=== PATIENT | male | born 2005 | race Caucasian/White ===

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

== ENCOUNTER → 2024-02-20 | Outpatient (CLI) | payer OTHER ==
--- NOTE | 2024-02-20 21:24 | MR ---
EXAMINATION TYPE: MR lumbar spine wo con DATE OF EXAM: 02/20/2024 COMPARISON: None HISTORY: Low back pain near tail bone and down right leg CONTRAST: 0 mL intravenous Gadavist. TECHNIQUE: Multiplanar, multisequence images of the lumbar spine were acquired. FINDINGS: L5-S1: No significant disc bulge or disc herniation. No spinal canal stenosis. No foraminal stenosi s. L4-L5: Disc desiccation is present. Disc height is preserved. There is mild to moderate disc bulging with mild anterior thecal sac compression. No AP spinal canal stenosis present. Neural foramen are pa tent L3-L4: No significant disc bulge or disc herniation. No spinal canal stenosis. No foraminal stenosi s. L2-L3: No significant disc bulge or disc herniation. No spinal canal stenosis. No foraminal stenosi s. L1-L2: No significant disc bulge or disc herniation. No spinal canal stenosis. No foraminal stenosi s. T12-L1: No significant disc bulge or disc herniation. No spinal canal stenosis. No foraminal stenos is. IMPRESSION: 1. Mild degenerative disc change with mild disc bulge L4-5.
== END | disposition home or self-care (01) ==
LOC: RADMRIMAIN 13:56
PROVIDERS: ATTEND Orthopaedic Surgery
DX: M51.36 Other intervertebral disc degeneration, lumbar region (principal)
CPT/HCPCS: 72148

== ENCOUNTER 2024-03-31 11:21 | Emergency (ER) | payer OTHER ==
[2024-03-31 11:42] VITALS: TEMP 98.3
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
[2024-03-31] MEDS: DIPH,PERTUS(ACELL)TETVAC-LF 0.5 ML VIAL IM ONE (12:49)
--- NOTE | 2024-03-31 13:23 | XR ---
EXAMINATION TYPE: XR wrist complete LT DATE OF EXAM: 03/31/2024 COMPARISON: NONE HISTORY: 18-year-old male left wrist injury and pain TECHNIQUE: 4 views FINDINGS: The radiocarpal and distal radial ulnar joint as well as the midcarpal compartment appear i ntact. However, the navicular view, there is subtle lucency along the carpal side of the navicular mi d pole. No other acute fracture or dislocation seen. IMPRESSION: Findings highly suggestive of a nondisplaced mid scaphoid waist fracture.
[2024-03-31 14:14] VITALS: BP 134/84; PULSE 72; RESP 18
== END 2024-03-31 14:14 | disposition home or self-care (01) ==
LOC: EC 11:21
CPT/HCPCS: 29125; 90471; 90715; 99283

== ENCOUNTER 2024-04-01 08:40 | Emergency (ER) | payer OTHER ==
[2024-04-01 08:44] VITALS: TEMP 98.1
--- NOTE | 2024-04-01 08:52 | ED ---
General Adult HPI - General Chief complaint: Recheck/Abnormal Lab/Rx Stated complaint: Thumb Fracture Time Seen by Provider: 04/01/24 08:43 Source: patient, RN notes reviewed Mode of arrival: ambulatory Limitations: no limitations - History of Present Illness Initial comments: 18-year-old male presents emergency department chief complaint of needing a work note. Patient was seen his other day for left scaphoid fracture. He states he did not receive a work note has no new complaints he has not taken the splint off has a follow-up with orthopedics on Monday. - Related Data Home Medications Medication Instructions Recorded Confirmed Dextroamphetamine/Amphetamine 30 mg PO QAM 12/22/16 12/22/16 [Adderall Xr] Dextroamphetamine/Amphetamine 10 mg PO W/LUNCH 12/22/16 12/22/16 [Adderall] guanFACINE HCL [Intuniv] 2 mg PO DAILY 12/22/16 12/22/16 Previous Rx's Medication Instructions Recorded Ibuprofen [Motrin] 800 mg PO Q6HR #30 tab 04/07/23 Cephalexin [Keflex] 500 mg PO Q12HR 7 Days #10 cap 03/31/24 Allergies Allergy/AdvReac Type Severity Reaction Status Date / Time No Known Allergies Allergy Verified 03/31/24 11:41 Review of Systems ROS Statement: Those systems with pertinent positive or pertinent negative responses have been documented in the HPI. ROS Other: All systems not noted in ROS Statement are negative. Past Medical History Past Medical History: No Reported History Additional Past Medical History / Comment(s): defiant History of Any Multi-Drug Resistant Organisms: None Reported Past Surgical History: No Surgical Hx Reported Past Psychological History: ADD/ADHD Smoking Status: Never smoker Past Alcohol Use History: None Reported Past Drug Use History: None Reported General Exam Limitations: no limitations General appearance: alert, in no apparent distress Respiratory exam: Present: normal lung sounds bilaterally. Absent: respiratory distress, wheezes, rales, rhonchi, stridor Cardiovascular Exam: Present: regular rate, normal rhythm, normal heart sounds. Absent: systolic murmur, diastolic murmur, rubs, gallop, clicks Extremities exam: Present: other (Splint left wrist) Course Vital Signs 04/01/24 08:41 Temperature 98.1 F Pulse Rate 71 Respiratory 20 Rate Blood Pressure 132/78 O2 Sat by Pulse 98 Oximetry Medical Decision Making - Medical Decision Making Was pt. sent in by a medical professional or institution (EMEKA Gerber, RESPIRATORY SUPERVISOR, urgent care, hospital, or [facility]...) When possible be specific @ -No Did you speak to anyone other than the patient for history (EMS, parent, family, police, friend...)? What history was obtained from this source @ -No Did you review nursing and triage notes (agree or disagree)? Why? @ -I reviewed and agree with nursing and triage notes Were old charts reviewed (outside hosp., previous admission, EMS record, old EKG, old radiological studies, urgent care reports/EKG's, [facility] records)? Report findings @ -No old charts were reviewed Differential Diagnosis (chest pain, altered mental status, abdominal pain women, abdominal pain men, vaginal bleeding, weakness, fever, dyspnea, syncope, headache, dizziness, GI bleed, back pain, seizure, CVA, palpatations, mental health, musculoskeletal)? @ -Work note, scaphoid fracture EKG interpreted by me (3pts min.). @ -None X-rays interpreted by me (1pt min.). @ -None done CT interpreted by me (1pt min.). @ -None done U/S interpreted by me (1pt. min.). @ -None done What testing was considered but not performed or refused? (CT, X-rays, U/S, labs)? Why? @ -None What meds were considered but not given or refused? Why? @ -None Did you discuss the management of the patient with other professionals (professionals i.e. , EMEKA, RESPIRATORY SUPERVISOR, lab, RT, psych nurse, case management social worker, customs officer, teacher, cra officer, watch caser)? Give summary @ -No Was smoking cessation discussed for >3mins.? @ -No Was critical care preformed (if so, how long)? @ -No Were there social determinants of health that impacted care today? How? (Homelessness, low income, unemployed, alcoholism, drug addiction, transportation, low edu. Level, literacy, decrease access to med. care, custodial, re hab)? @ -No Was there de-escalation of care discussed even if they declined (Discuss DNR or withdrawal of care, Hospice)? DNR status @ -No What co-morbidities impacted this encounter? (DM, HTN, Smoking, COPD, CAD, Cancer, CVA, ARF, Chemo, Hep., AIDS, mental health diagnosis, sleep apnea, morbid obesity)? @ -None Was patient admitted / discharged? Hospital course, mention meds given and route, prescriptions, significant lab abnormalities, going to OR and other pertinent info. @ -Discharge patient presented with work note follow-up with orthopedics. Undiagnosed new problem with uncertain prognosis? @ -No Drug Therapy requiring intensive monitoring for toxicity (Heparin, Nitro, Insulin, Cardizem)? @ -No Were any procedures done? @ -No Diagnosis/symptom? @ -Work note, scaphoid fracture Acute, or Chronic, or Acute on Chronic? @ -acute Uncomplicated (without systemic symptoms) or Complicated (systemic symptoms)? @ -uncomplicated Side effects of treatment? @ -No Exacerbation, Progression, or Severe Exacerbation? @ -No Poses a threat to life or bodily function? How? (Chest pain, [place], [place], pneumonia, PE, COPD, DKA, ARF, appy, cholecystitis, CVA, Diverticulitis, Homicidal, Suicidal, threat to staff... and all critical care pts) @ -No Disposition Clinical Impression: Scaphoid fracture Disposition: HOME SELF-CARE Condition: Stable Is patient prescribed a controlled substance at d/c from ED?: No Referrals: Nabil Estrella MD [Primary Care Provider] - 1-2 days Time of Disposition: 08:52
[2024-04-01 09:16] VITALS: BP 128/78; PULSE 72; RESP 18
== END 2024-04-01 09:14 | disposition home or self-care (01) ==
LOC: EC 08:40
DX: S62.002A Unspecified fracture of navicular [scaphoid] bone of left wrist, initial encounter for closed fracture (principal); X58.XXXA Exposure to other specified factors, initial encounter
CPT/HCPCS: 99283

== ENCOUNTER 2024-12-06 15:02 | Emergency (ER) | payer OTHER ==
--- NOTE | 2024-12-06 16:25 | ED ---
Abdominal Pain HPI - General Chief Complaint: Abdominal Pain Stated Complaint: abd bloating/pain Time Seen by Provider: 12/06/24 16:03 Source: patient, RN notes reviewed, old records reviewed Mode of arrival: ambulatory Limitations: no limitations - History of Present Illness Initial Comments: This is a 19-year-old male to the ER for evaluation abdominal pain, patient has mild abdominal pain here in the ER crampy abdominal pain periumbilical abdominal pain. At this point patient has some nausea no vomiting decreased bowel movements for what he believes is a week. This no abdominal surgeries he did take 2 stool softeners in the last 2 days with no travel history or sick contacts. Patient has occasional cramping which does appear to be worse after taking medication. No surgical no medical history no drugs or alcohol MD Complaint: abdominal pain, other (Nausea vomiting) -: days(s) Location: epigastric, suprapubic Radiation: epigastric, suprapubic Migration to: periumbilical Severity: moderate Severity scale (1-10): 4 Quality: cramping, aching Consistency: intermittent Improves With: nothing Worsens With: nothing Associated Symptoms: nausea Treatments Prior to Arrival: other (Patient to take [id number] stool softeners) - Related Data Home Medications Medication Instructions Recorded Confirmed Dextroamphetamine/Amphetamine 30 mg PO QAM 12/22/16 12/22/16 [Adderall Xr] Dextroamphetamine/Amphetamine 10 mg PO W/LUNCH 12/22/16 12/22/16 [Adderall] guanFACINE HCL [Intuniv] 2 mg PO DAILY 12/22/16 12/22/16 Previous Rx's Medication Instructions Recorded Ibuprofen [Motrin] 800 mg PO Q6HR #30 tab 04/07/23 Cephalexin [Keflex] 500 mg PO Q12HR 7 Days #10 cap 03/31/24 polyethylene glycoL 3350 [Miralax] 17 gm PO BID #527 gm 12/06/24 Allergies Allergy/AdvReac Type Severity Reaction Status Date / Time No Known Allergies Allergy Verified 03/31/24 11:41 Review of Systems ROS Statement: Those systems with pertinent positive or pertinent negative responses have been documented in the HPI. ROS Other: All systems not noted in ROS Statement are negative. Past Medical History Past Medical History: No Reported History Additional Past Medical History / Comment(s): defiant History of Any Multi-Drug Resistant Organisms: None Reported Past Surgical History: No Surgical Hx Reported Past Psychological History: ADD/ADHD Smoking Status: Never smoker Past Alcohol Use History: None Reported Past Drug Use History: None Reported General Exam Limitations: no limitations General appearance: alert, in no apparent distress Head exam: Present: atraumatic, normocephalic, normal inspection Eye exam: Present: normal appearance, PERRL, EOMI. Absent: scleral icterus, conjunctival injection, periorbital swelling ENT exam: Present: normal exam, mucous membranes moist Neck exam: Present: normal inspection. Absent: tenderness, meningismus, lymphadenopathy Respiratory exam: Present: normal lung sounds bilaterally. Absent: respiratory distress, wheezes, rales, rhonchi, stridor Cardiovascular Exam: Present: regular rate, normal rhythm, normal heart sounds. Absent: systolic murmur, diastolic murmur, rubs, gallop, clicks GI/Abdominal exam: Present: soft, normal bowel sounds. Absent: distended, tenderness, guarding, rebound, rigid Extremities exam: Present: normal inspection, full ROM, normal capillary refill. Absent: tenderness, pedal edema, joint swelling, calf tenderness Back exam: Present: normal inspection Neurological exam: Present: alert, oriented X3, CN II-XII intact Psychiatric exam: Present: normal affect, normal mood Skin exam: Present: warm, dry, intact, normal color. Absent: rash Course Vital Signs 12/06/24 15:09 Temperature 98.0 F Pulse Rate 81 Respiratory 18 Rate Blood Pressure 113/71 O2 Sat by Pulse 97 Oximetry - Reevaluation(s) Reevaluation #1: 12/06/24 16:25 Medical records reviewed Reevaluation #4: Was pt. sent in by a medical professional or institution (, PA, SPANISH LECTURER, urgent care, hospital, or snf...) When possible be specific @ -no Did you speak to anyone other than the patient for history (EMS, parent, family, police, friend...)? What history was obtained from this source @ -no Did you review nursing and triage notes (agree or disagree)? Why? @ -agree Are old charts reviewed (outside hosp., previous admission, EMS record, old EKG, old radiological studies, urgent care reports/EKG's, snf records)? Report findings @ -yes Differential Diagnosis (chest pain, altered mental status, abdominal pain women, abdominal pain men, vaginal bleeding, weakness, fever, dyspnea, syncope, headache, dizziness, GI bleed, back pain, seizure, CVA, palpatations, mental health, musculoskeletal)? @ -prior EKG interpreted by me (3pts min.). @ -yes X-rays interpreted by me (1pt min.). @ -yes negative for acute disease CT interpreted by me (1pt min.). @ -no U/S interpreted by me (1pt. min.). @ -no What testing was considered but not performed or refused? (CT, X-rays, U/S, labs)? Why? @ -none What meds were considered but not given or refused? Why? @ -none Did you discuss the management of the patient with other professionals (professionals i.e. , PA, SPANISH LECTURER, lab, RT, psych nurse, social media sr strategy manager, academic specialist, teacher, emergency response officer, registered nurse hh case manager)? Give summary @ -no Was smoking cessation discussed for >3mins.? @ -no Was critical care preformed (if so, how long)? @ -no Were there social determinants of health that impacted care today? How? (Homelessness, low income, unemployed, alcoholism, drug addiction, transportation, low edu. Level, literacy, decrease access to med. care, snf, rehab)? @ -none Was there de-escalation of care discussed even if they declined (Discuss DNR or withdrawal of care, Hospice)? DNR status @ -no What co-morbidities impacted this encounter? (DM, HTN, Smoking, COPD, CAD, Cancer, CVA, ARF, Chemo, Hep., AIDS, mental health diagnosis, sleep apnea, morbid obesity)? @ -none Was patient admitted / discharged? Hospital course, mention meds given and route, prescriptions, significant lab abnormalities, going to OR and other pertinent info. @ - Undiagnosed new problem with uncertain prognosis? @ -no Drug Therapy requiring intensive monitoring for toxicity (Heparin, Nitro, Insulin, Cardizem)? @ -no Were any procedures done? @ -no Diagnosis/symptom? @ - Acute, or Chronic, or Acute on Chronic? @ -Acute Uncomplicated (without systemic symptoms) or Complicated (systemic symptoms)? @ -Complicated Side effects of treatment? @ -no Exacerbation, Progression, or Severe Exacerbation? @ -exacerbation Poses a threat to life or bodily function? How? (Chest pain, [place], [place], pneumonia, PE, COPD, DKA, ARF, appy, cholecystitis, CVA, Diverticulitis, Homicidal, Suicidal, threat to staff... and all critical care pts) @ -yes Reevaluation #5: Differential Abdominal Pain Men: Appendicitis, cholecystitis, diverticulosis, ischemic bowel, pancreatitis, hepatitis, UTI, gastroenteritis, AAA, incarcerated hernia, bowel obstruction, constipation, inflammatory bowel, hepatitis, peptic ulcer disease, splenic infarction, perforated viscus, testicular torsion, this is not meant to be an all-inclusive list Disposition Clinical Impression: Abdominal pain, Constipation Disposition: HOME SELF-CARE Condition: Good Instructions (If sedation given, give patient instructions): Constipation (ED) Prescriptions: polyethylene glycoL 3350 [Miralax] 17 gm PO BID #527 gm Is patient prescribed a controlled substance at d/c from ED?: No Referrals: Nabil Estrella MD [Primary Care Provider] - 1-2 days Time of Disposition: 17:40
--- NOTE | 2024-12-06 16:51 | XR ---
EXAMINATION TYPE: XR KUB DATE OF EXAM: 12/06/2024 4:35 PM COMPARISON: None CLINICAL INDICATION: Male, 19 years old with history of pain; [facility] TECHNIQUE: One radiographic view of the abdomen was obtained. FINDINGS: The bowel gas pattern is nonspecific without dilated loops of small or large bowel. . Fecal material and gas are demonstrated throughout the colon and rectum. There is no evidence for organome dale or pneumoperitoneum. No acute osseous process. No abnormal calcifications are present. IMPRESSION: Nonspecific bowel gas pattern without radiographic evidence for acute process. [facility], , 12/06/2024 4:49 PM
[2024-12-06] MEDS: SENNOSIDES-DOCUSATE SODIUM 1 EACH TAB PO STA (18:09)
[2024-12-06 18:15] VITALS: BP 111/79; PULSE 76; RESP 19; TEMP 98.2
[2024-12-06] MEDS: NA PHOS,M-B/NA PHOS,DI-BA 133 ML ENEMA RECTAL STA (18:21)
[2024-12-06] MEDS: GLYCERIN ADULT SUPPOSITORY 1 EACH RECTAL STA (18:21)
[2024-12-06] MEDS: MINERAL OIL 133 ML ENEMA RECTAL STA (18:21)
== END 2024-12-06 18:30 | disposition home or self-care (01) ==
LOC: EC 15:02
DX: R10.13 Epigastric pain (principal); K59.00 Constipation, unspecified
CPT/HCPCS: 74018; 99284